=== PATIENT | female | born 1970 | race Caucasian/White ===

== ENCOUNTER → 2016-09-09 | Outpatient (CLI) | payer BC | LOC: BMCIMAGING 08:49 | PROVIDERS: ATTEND Internal Medicine | DX: R10.32 Left lower quadrant pain (principal); N84.0 Polyp of corpus uteri; N94.89 Other specified conditions associated with female genital organs and menstrual cycle; N83.291 Other ovarian cyst, right side ==

== ENCOUNTER → 2017-05-17 | Outpatient (CLI) | payer BC | LOC: BMCIMAGING 14:34 | PROVIDERS: ATTEND Internal Medicine | DX: Z12.31 Encounter for screening mammogram for malignant neoplasm of breast (principal) ==